=== PATIENT | female | born 2000 | race American Indian/Alaskan Native ===

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

== ENCOUNTER 2018-02-21 22:24 | Emergency (ER) | payer OTHER ==
[~2018-02-21] VITALS: Ht 160 cm; Wt 65.8 kg
[~2018-02-21 22:24] MED LIST: DOXYCYCLINE HY100 MG PO; GUAIFENESIN AC473 ML PO
== END 2018-02-22 01:27 | disposition home or self-care (01) ==
LOC: ED 22:24
DX: K29.00 Acute gastritis without bleeding (principal)
CPT/HCPCS: 80053; 81001; 83690; 84703; 85025; 96361; 96374; 99284-25; J2405; J7030

== ENCOUNTER 2021-05-20 11:23 | Emergency (ER) | payer OTHER ==
[~2021-05-20] VITALS: Ht 160 cm; Wt 69.4 kg
--- OUTSIDE RECORDS SUMMARY | 2021-05-20 11:26 | XMS ---
PreManage Notification: ELSA SERRATO Security Supervisor Rolling Room Events No recent Security Events currently on file CRITERIA MET - PDMP - ED - Positive COVID-19 Lab Result - [facility] CARE PROVIDERS There are no care providers on record at this time. Lorena has no Care Guidelines for this patient. EAdalidDAdalid VISIT COUNT (12 MO.) 1 [facility] TOTAL 1 NOTE: Visits indicate total known visits. ED/UCC VISIT TRACKING (12 MO.) 05/20/2021 11:25 [facility] [place] TYPE: Emergency COMPLAINT: - ABD PAIN. FEVER, N/V/D, SWEATS/CHILLS INPATIENT VISIT TRACKING (12 MO.) No inpatient visits to display in this time frame [id number]
[2021-05-20] MEDS ORDERED: ONDANSETRON ODT4 MG PO (11:37)
[2021-05-20] MEDS ORDERED: CEPHALEXIN500 MG PO (15:30)
== END 2021-05-20 15:40 | disposition home or self-care (01) ==
LOC: ED 11:23
DX: N12 Tubulo-interstitial nephritis, not specified as acute or chronic (principal); Z79.899 Other long term (current) drug therapy
CPT/HCPCS: 74177; 81001; 84703; 87088; 96375; 99284-25; J0696; J1170; J2405; Q9967

== ENCOUNTER 2022-12-29 07:55 | Day surgery (SDC) | payer OTHER ==
[2022-12-20 09:12] VITALS: BP 117/78
[~2022-12-29] VITALS: Ht 160 cm; Wt 80.5 kg
[~2022-12-29 07:55] MED LIST changes: +CEPHALEXIN500 MG PO; +ONDANSETRON ODT4 MG PO
[2022-12-29 08:20] VITALS: BP 112/76
--- NOTE | 2022-12-29 11:15 | NUR ---
12/29/22 1115 Jaylyn Lewis PT TO PACU AWAKE ASKING FOR WATER, ASSURED HER WE WOULD GET HER SOME WATER WHEN SHE IS MORE AWAKE, SHE DENIES PAIN AND NAUSEA.
[2022-12-29 12:05] VITALS: BP 112/69
--- NOTE | 2022-12-29 12:08 | NUR ---
LE 1205: PT IS BACK TO DS FROM PACU. SHE IS SLEEPY, BUT EASILY AROUSES. MOM IS AT THE BEDSIDE. CALL LIGHT WITHIN REACH. WATER ON BEDSIDE TABLE, SHE HAS BEEN TOLERATING DRINKS IN PACU. PAIN IS 7/10. PT WOULD LIKE CHOCOLATE PUDDING. NO ADDITIONAL NEEDS AT THIS TIME. DC CRITERIA REVIEWED WITH PT AND MOM.
[2022-12-29 13:11] VITALS: BP 108/67
--- NOTE | 2022-12-29 13:12 | NUR ---
PT REPORTS SHE HAS HAD NO PAIN RELIEF AFTER HER PAIN PILL. REPORTING THE PAIN IS IN HER ABDOMEN GOING INTO HER BACK. SHE IS EDUCATED THAT PART OF THAT IS THE GAS THEY USED TO INFLATE HER BELLY. SHE IS ENCOURAGED TO PASS GAS AND BELCH, ALSO TO GET UP AND MOVE AROUND.
--- NOTE | 2022-12-29 13:22 | NUR ---
1315: PT IS ASSISTED UP OOB WITH STAND BY ASSIST TO WALK AROUND THE DEPARTMENT. WE MAKE ONE LAP AROUND, SHE INDICATES THAT SHE WOULD LIKE TO LAY BACK DOWN. PT STATES THAT HER ABDOMEN FEELS TIGHT, WHICH IS WHAT IS PAINFUL FOR HER. SHE IS GIVEN A CARBONATED BEVERAGE TO SEE IF IT WILL HELP HER BEGIN TO BELCH AND PASS GAS TO HELP GET RID OF THE GAS.
--- NOTE | 2022-12-29 13:38 | NUR ---
HARDEEP 1335: PT IS UP TO THE BATHROOM. SHE AMBUALTES TO THE BATHROOM AND VOIDS 300MLS OF PALE YELLOW URINE. SHE AMBULATES BACK TO HER ROOM WITHOUT ISSUES.
--- NOTE | 2022-12-29 13:54 | OR ---
[facility] [address] [place], [place] [address] Signed DATE OF OPERATION: 12/29/2022 SURGEON: Janet [place] MD PREOPERATIVE DIAGNOSIS: Chronic cholecystitis with cholelithiasis. POSTOPERATIVE DIAGNOSIS: Chronic cholecystitis with cholelithiasis. PROCEDURE: Laparoscopic cholecystectomy with intraoperative cholangiogram. ESTIMATED BLOOD LOSS: None. FINDINGS: The intraoperative cholangiogram was unremarkable. There were multiple small 3-4 mm yellow cholesterol stones. There was some cholesterolosis. INDICATIONS: Caro is a 22-year-old obese female, asked to see me for her symptomatic gallstones. She has classic right upper quadrant abdominal pain that radiates through to her back. It is worse after meals. She had been to her primary care provider. Ultrasound confirmed the gallstones. She had been asked to see me as a local general surgeon on-call. In the office, I gave her a pamphlet on the gallbladder. We looked at it together in detail. She understands the location and function of the gallbladder. We reviewed laparoscopic versus open cholecystectomy. There is risk including, but not limited to bleeding, infection, scarring, change in contour of the skin, damage to bowel, damage to the main bile duct, incisional hernias and other unforeseen comorbidities. She understands expected intraop and postop course. She had expressed understanding and wished to proceed. DESCRIPTION OF PROCEDURE: I met with Caro and her mom in our preop area. After this, we took Caro into the operating room and placed her in the supine position. She was placed under general endotracheal tube anesthesia. She was given preoperative antibiotics along with subcutaneous heparin. SCDs were utilized. She was prepped and draped in the usual sterile fashion. All trocars were placed in their usual positions under direct visualization of the camera without difficulty. The gallbladder was grasped and Electronically Signed By: JANET MARTIN MD 12/29/22 1354 PATIENT NAME: CARO SERRATO OPERATIVE REPORT DATE OF : [birth year] REPORT #: [id number] PHYSICIAN: JANET MARTIN MD PCP: [facility] REPORT IS CONFIDENTIAL AND NOT TO BE RELEASED WITHOUT AUTHORIZATION [facility] [address], [place] [address] Signed elevated in the right upper quadrant. We took pictures throughout for photodocumentation. The triangle of Calot was dissected free and a clip was placed across the cystic duct stump next to the gallbladder along with the cystic artery. The intraoperative cholangiocatheter was inserted into the cystic duct. The intraoperative cholangiogram was found to be unremarkable. The contrast flowed readily into the duodenum without any filling defects. After this, we secured the cystic duct stump with a PDS Endoloop and two clips were placed across the cystic duct stump to kandy its location. The gallbladder was then removed from the gallbladder fossa with the help of the cautery and placed into an EndoCatch bag. We used our laparoscopic suturing device to pass 0-Vicryl suture on either side of the fascia of the subxiphoid trocar site. This was tied down to close this fascia primarily. After this, the gas was allowed to escape and all the trocars were removed. The gallbladder was given to our circulating nurse for photodocumentation on the back field. We closed the fascia of the supraumbilical trocar site with interrupted [id number] 0 Vicryl suture. Local anesthetic was injected into all trocar sites. Each trocar site was irrigated and suctioned out until clear. The skin and dermis of each trocar site was closed with interrupted 3-0 subcuticular Monocryl sutures. Dry gauze and tape was applied to all incisions. After this, Caro was awakened from her anesthesia, extubated in the OR, and taken to recovery room in stable condition. Janet [place] MD ALB/MODL /[id number] cc: Janet [place] MD [facility] Copies: JANET MARTIN MD ~ Electronically Signed By: JANET MARTIN MD 12/29/22 1354 PATIENT NAME: CARO SERRATO OPERATIVE REPORT DATE OF : [birth year] REPORT #: [id number] PHYSICIAN: JANET MARTIN MD PCP: [facility] REPORT IS CONFIDENTIAL AND NOT TO BE RELEASED WITHOUT AUTHORIZATION
[2022-12-29 14:06] VITALS: BP 117/62
--- NOTE | 2022-12-29 14:08 | NUR ---
PT REPORTS THAT TIGHTNESS AND PAIN ARE GETTING BETTER IN HER ABDOMEN. SHE INDICATES THAT SHE WOULD LIKE TO GO HOME AT THIS TIME. SHE IS EDUCATED ON HOW TO BEST TO THAT AND TO OPEN HER CURTAIN WHEN SHE IS READY.
--- NOTE | 2022-12-29 14:29 | NUR ---
LE 1420: PT IS GIVEN VERBAL AND WRITTEN DC INSTRUCTIONS. BOTH MOM AND PT VERBALIZE UNDERSTANDING. NO QUESTIONS AT THIS TIME. LE 1425: PT IS TAKEN TO PERSONAL VEHICLE VIA WC, WHERE SHE IS ABLE TO TRANSFER HERSELF WITHOUT ISSUES.
--- NOTE | 2023-01-04 15:40 | PATH ---
[facility] [address] [place], [place] [address] Signed SPECIMEN(S): A GALLBLADDER AND GALLSTONES SPECIMEN SOURCE: A. GALLBLADDER AND GALLSTONES CLINICAL HISTORY: Chronic cholecystitis. FINAL PATHOLOGIC DIAGNOSIS: Gallbladder, cholecystectomy: - Mild chronic cholecystitis, cholelithiasis, and cholesterolosis. DS:roly MICROSCOPIC EXAMINATION: Histologic sections of all submitted blocks are examined by light microscopy. These findings, together with the gross examination, support the pathologic diagnosis. GROSS DESCRIPTION: The specimen, labeled and designated "ting Serrato," is received in formalin and consists of: Specimen: Previously opened gallbladder. Dimensions: 5.5 x 2.6 cm. Serosa: Violaceous, smooth. Cystic Duct: Obstructed to yellow gallstones that measure 0.3 cm in greatest dimension.. Calculi: Numerous yellow gallstones within the container that range in size from 0.3 to 0.5 cm in diameter. Mucosa: Prentice-abarca and velvety. Wall thickness: 0.4 cm. Lymph node: No pericystic lymph nodes are grossly identified. Additional: None. Relief Driller sections are submitted in (A1). JS (under the direct supervision of a pathologist) The Gross Description was prepared using a voice recognition system. The report was reviewed for accuracy; however, sound-alike word errors, addition and/or deletions may occur. If there is any question about this report, please contact Client Services. PERFORMING LABORATORY: Technical component was performed by [facility], Camila Dominguez, PATIENT NAME: ELSA SERRATO PATHOLOGY DATE OF : [birth year] REPORT #: [id number] PHYSICIAN: BILL PATHOLOGY PCP: [facility] REPORT IS CONFIDENTIAL AND NOT TO BE RELEASED WITHOUT AUTHORIZATION [facility] [address] [place], [place] [address] [place] [address] (CLIA# [id number]). Professional interpretation was performed by [facility], [address] [place] [id number] (CLIA#: [id number]). Diagnostician: Kole Mayo MD Pathologist Electronically Signed 01/04/2023 Copies: ~ PATIENT NAME: ELSA SERRATO PATHOLOGY DATE OF : [birth year] REPORT #: [id number] PHYSICIAN: BILL PATHOLOGY PCP: [facility] REPORT IS CONFIDENTIAL AND NOT TO BE RELEASED WITHOUT AUTHORIZATION
== END 2022-12-29 14:25 | disposition home or self-care (01) ==
LOC: DS 07:55
PROVIDERS: ATTEND Colon & Rectal Surgery
PROC: 0FT44ZZ Resection of Gallbladder, Percutaneous Endoscopic Approach (ICD-10-PCS; principal; 2022-12-29 09:30)
DX: K80.10 Calculus of gallbladder with chronic cholecystitis without obstruction (principal); E66.9 Obesity, unspecified; Z68.31 Body mass index [BMI] 31.0-31.9, adult; Z72.0 Tobacco use
CPT/HCPCS: 00790; 74300; 88304; J0131; J0690; J1100; J1644; J1885; J2001; J2405; J2704; J3010; J3475; J3490; J7121; Q9967

== ENCOUNTER 2024-12-12 19:22 | Emergency (ER) | payer BC, OTHER ==
[~2024-12-12] VITALS: Ht 160 cm; Wt 82.0 kg
[~2024-12-12 19:22] MED LIST changes: +CARAFATE1 GM PO; +CYCLOBENZAPRINE10 MG PO
[2024-12-12] MEDS ORDERED: PRENATAL 19 TA1 EAC2 PO (19:39)
[2024-12-12] MEDS ORDERED: FAMOTIDINE 20 MG TAB PO ONE (20:00)
[2024-12-12] MEDS ORDERED: ACETAMINOPHEN 500 MG TAB PO ONE (20:00)
[2024-12-12 20:09] LABS: BASOPHILS 0.2 % (0.1-1.2); EOSINOPHILS 1.5 % (0.7-5.8); LYMPHOCYTES 22.6 % (19.3-51.7); MCH 28.6 PG (25.6-32.2); MCHC 34.0 g/dL (32.2-35.5); MCV 84.0 fL (79.4-94.8); MONOCYTES 5.9 % (4.7-12.5); NEUTROPHILS 69.6 % (34.0-71.1); RBC 4.69 M/uL (3.93-5.22)
[2024-12-12] MEDS ORDERED: NITROFURANTOIN MONOHYD MACROCR 100 MG HOME.PACK PO ONE (20:30)
[2024-12-12 20:49] LABS: ALT (SGPT) 12.0 U/L (14-59); AST (SGOT) 12.0 U/L (15-37); GLOMERULAR FILTRATION RATE,EST 133.0 mL/min (>60); PROTEIN, TOTAL 7.7 g/dL (6.4-8.2); UREA NITROGEN 13.0 mg/dL (7-18)
[2024-12-12 21:21] LABS: BLOOD/HGB, URINE NEGATIVE (Negative); KETONE, URINE NEGATIVE (Negative); LEUK ESTERASE, URINE NEGATIVE (negative); NITRITE, URINE NEGATIVE (negative)
[2024-12-12 21:46] VITALS: BP 107/64
--- NOTE | 2024-12-13 06:06 | EKG ---
[facility] [address] [facility] [place], [place] [address] Signed Normal sinus rhythm with sinus arrhythmia Normal ECG No previous ECGs available Confirmed by CONNIE CARRENO MD ([id number]) on 12/13/2024 6:05:55 AM Electronically Signed By: CONNIE CARRENO 12/13/24 0606 PATIENT NAME: ELSA SERRATO LALIT Electrocardiogram DATE OF : [birth year] PHYSICIAN: OCNNIE CARRENO REPORT #: [id number] REPORT IS CONFIDENTIAL AND NOT TO BE RELEASED WITHOUT AUTHORIZATION
== END 2024-12-12 21:47 | disposition home or self-care (01) ==
LOC: ED 19:22
PROVIDERS: Internal Medicine
DX: O99.891 Other specified diseases and conditions complicating pregnancy (principal); M94.0 Chondrocostal junction syndrome [Tietze]; Z3A.08 8 weeks gestation of pregnancy
CPT/HCPCS: 36415; 80053; 81003; 83735; 84484; 84702; 85025; 85379; 93005; 93010; 99285; A9270

== ENCOUNTER 2024-12-13 18:36 | Emergency (ER) | payer BC, OTHER ==
[~2024-12-13] VITALS: Ht 160 cm; Wt 82.6 kg
[~2024-12-13 18:36] MED LIST changes: +PRENATAL 19 TA1 EAC2 PO
--- OUTSIDE RECORDS SUMMARY | 2024-12-13 18:43 | XMS ---
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 Lorena has no Care Guidelines for this patient. Patricia [facility] MO[facility] NOTE: Visits indicate total known visits. ED/C VISIT TRACKING (12 MO.) [facility]24 18[facility] COMPLAINT: - VAGINAL BLEEDING 12/12/2024 19:23 [facility] [place] TYPE: Emergency COMPLAINT: - CHEST PAIN 09/25/2024 22:42 [facility] [place] TYPE: Emergency COMPLAINT: - FLANK PAIN DIAGNOSES: - Right lower quadrant pain - Right lower quadrant pain - Unspecified abdominal pain INPATIENT VISIT TRACKING (12 MO.) No inpatient visits to display in this time frame [id number]
[2024-12-13 20:24] LABS: BASOPHILS 0.3 % (0.1-1.2); EOSINOPHILS 1.4 % (0.7-5.8); LYMPHOCYTES 25.4 % (19.3-51.7); MCH 28.4 PG (25.6-32.2); MCHC 33.8 g/dL (32.2-35.5); MCV 83.9 fL (79.4-94.8); MONOCYTES 4.9 % (4.7-12.5); NEUTROPHILS 67.7 % (34.0-71.1); RBC 4.72 M/uL (3.93-5.22)
[2024-12-13 21:12] LABS: ALT (SGPT) 15.0 U/L (14-59); AST (SGOT) 15.0 U/L (15-37); GLOMERULAR FILTRATION RATE,EST 127.0 mL/min (>60); PROTEIN, TOTAL 7.8 g/dL (6.4-8.2); UREA NITROGEN 9.0 mg/dL (7-18)
[2024-12-13 21:56] LABS: ABO A; RH POSITIVE
[2024-12-13 23:19] VITALS: BP 110/61
== END 2024-12-13 23:20 | disposition home or self-care (01) ==
LOC: ED 18:36
PROVIDERS: Internal Medicine
DX: O20.9 Hemorrhage in early pregnancy, unspecified (principal); Z3A.08 8 weeks gestation of pregnancy
CPT/HCPCS: 36415; 76801; 76817; 80053; 84702; 85025; 86900; 86901; 99284-25